=== PATIENT | female | born 1960 | race Caucasian/White ===

== ENCOUNTER 2024-03-05 22:13 | Emergency (ER) | payer BC | END 2024-03-06 00:29 | disposition home or self-care (01) | LOC: ERS 22:13 | DX: R42 Dizziness and giddiness (principal); R29.700 NIHSS score 0; I48.92 Unspecified atrial flutter; E03.9 Hypothyroidism, unspecified; Z79.01 Long term (current) use of anticoagulants; Z79.899 Other long term (current) drug therapy | CPT/HCPCS: 93005; 99284 ==